=== PATIENT | female | born 2000 | race Two or more races ===

== ENCOUNTER 2025-01-04 16:21 | Observation (INO) | payer BC, OTHER ==
[~2025-01-04] VITALS: Ht 165.1 cm; Wt 72.6 kg
[2025-01-04] MEDS ORDERED: LACTATED RINGER'S 1,000 ML IV ONE (17:45)
[2025-01-04] MEDS: NIFEdipine 10 MG CAP PO ONE (17:47)
[2025-01-04] MEDS: LACTATED RINGER'S 1,000 ML IV ONE (17:47)
--- NOTE | 2025-01-04 18:10 | DVH ---
BIOPHYSICAL PROFILE HISTORY: GDMA1 Comparison Study: None TECHNIQUE: Multiple real-time grayscale sonographic images through the gravid uterus of the fetus wi th duplex Doppler color flow and M-mode spectral analysis FINDINGS: BIOPHYSICAL PROFILE: breathing score: 2 movement score: 2 tone score: 2 Quantitative SYD score: 2 (23.5 cm) Total score: 8/8, normal The cervix measuring 3.2 cm and is closed Single live fetus in cephalic presentation. heart rate 142 beats per minute. Anterior placenta without previa or abruption IMPRESSION: 1. Biophysical profile score: 8-8, normal.
[2025-01-04] MEDS: TERBUTALINE SULFATE 1 MG/ML 1ML VIAL SC SCH (18:24)
[2025-01-04] MEDS ORDERED: NIFE10CA52 PO (18:43)
--- NOTE | 2025-01-04 18:45 | DVHDS2 ---
Physician Discharge Progress N Final Diagnosis: testing for GDM, A1 PTL Operations or Procedures: Operations or Procedures 24yo IUP@35.1wks, +FM, denies feeling UCs. denies LOF/VB/ART/vision changes/RUQ pain. VSS NST reactive TOCO: initially q2-3 min, treated with 1L LR IV bolus/procardia 10mg PO/terbu nawaf SQ x1 then no UCs noted FKC/PTL/preE precautions reviewed Dr. Sandoval consulted, agrees with POC. Rx sent for procardia 10mg PO q4hrs. Other Interventions Other Interventions [place] [address] Ph: [phone] DIAGNOSTIC IMAGING Diagnostic Imaging Report : [id number] Signed PATIENT: ELKE CULP ACCT: [id number] UNIT: [id number] : 2000 LOC: [facility] ROOM / BED: [facility] / A AGE / SEX: 24 / F ADM STATUS: ADM IN SERVICE 1634 ORDERING PHYSICIAN: ADOLPH SIMMONS CNM PROCEDURE(s): BPP - BIOPHYSICAL PROFILE REASON: GDMA1 ORDER NUMBER(s): [id number], ACCESSION NUMBER(s): [id number] BIOPHYSICAL PROFILE HISTORY: GDMA1 Comparison Study: None TECHNIQUE: Multiple real-time grayscale sonographic images through the gravid uterus of the fetus with duplex Doppler color flow and M-mode spectral analysis FINDINGS: BIOPHYSICAL PROFILE: breathing score: 2 movement score: 2 tone score: 2 Quantitative SYD score: 2 (23.5 cm) Total score: 8/8, normal The cervix measuring 3.2 cm and is closed Single live fetus in cephalic presentation. heart rate 142 beats per minute. Anterior placenta without previa or abruption IMPRESSION: 1. Biophysical profile score: 8-8, normal. ATED BY: GREGORIA GLORIA MD DICTATED DATE/TIME: 01/04/251807 SIGNED BY: GREGORIA GLORIA MD Condition on Discharge: Stable Disposition: Home Discharge Instructions: Diet: Consistent carbohydrate Activity: See Comment Activity comment: pelvic rest Medications: see med list Follow Up Care: Specialist: f/u in 1wk Discharge Statement: "Patient was advised to return to the ER or call 911 if any headaches, dizziness, shortness of breath, chest pain, abdominal pain, bleeding, fevers, or worsening of medical condition. Patient was counseled about treatment plan, medications, possible side effects, patientverbalized understanding. All questions were answered to the best of my ability. This discharge took greater then 30 minutes in planning, reviewing documentation, counseling the patient, and discussing with other team members." Visit Coding OBGYN Date of Service: Jan 04, 2025 Billing Provider: ADOLPH SIMMONS CNM OPERATIONS MANAGER/COORDINATOR Common Visit Codes: 35207-[id number] OBS CARE (HIGH) OPERATIONS MANAGER/COORDINATOR Procedure Codes: 07784-92- NON-STRESS TEST ADOLPH SIMMONS CNM Jan 04, 2025 18:45
== END 2025-01-04 19:23 | disposition home or self-care (01) ==
LOC: UNDOADMOB 16:21 → LDRP 16:21 → UNDODISOB 19:23
PROVIDERS: ADMIT Obstetrics & Gynecology; ATTEND Obstetrics & Gynecology
DX: O24.419 Gestational diabetes mellitus in pregnancy, unspecified control (principal); O60.03 Preterm labor without delivery, third trimester; Z3A.35 35 weeks gestation of pregnancy; Z98.890 Other specified postprocedural states; Z79.899 Other long term (current) drug therapy
CPT/HCPCS: 76818; 81002; 82948; 82962; 94760; 96360; 96372; G0378; J3105; 59025; 76819

== ENCOUNTER 2025-01-13 17:30 | Observation (INO) | payer BC ==
[~2025-01-13] VITALS: Ht 165.1 cm; Wt 74.8 kg
[~2025-01-13 17:30] MED LIST: NIFE10CA52 PO
--- NOTE | 2025-01-13 18:27 | DVH ---
BIOPHYSICAL PROFILE HISTORY: GDMA1 TECHNIQUE: Multiple real-time grayscale sonographic images through the gravid uterus of the fetus wi th duplex Doppler color flow. FINDINGS: BIOPHYSICAL PROFILE: breathing score: 2 movement score: 2 tone score: 2 Quantitative SYD score: 2 Total score: 8 out of 8 Single live intrauterine . Cephalic lie. heart rate 144 beats per minute. SYD 19 cm. Debris within the amniotic fluid. Placenta anteriorly positioned. IMPRESSION: Biophysical profile score: 8 out of 8 Debris/ echogenic foci within the amniotic fluid.
[2025-01-13] MEDS ORDERED: PREN1TAB71 PO (19:11)
[2025-01-13] MEDS ORDERED: FERR1TAB36 PO (19:12)
--- NOTE | 2025-01-13 20:38 | DVHDS2 ---
Physician Discharge Progress N Final Diagnosis: testing for GDM Operations or Procedures: Operations or Procedures SUBJECTIVE Lyubov Kelly is a 24 yo with IUP at 36w3d presenting for routine weekly NST/BPP LMP: 05/03/2024 Review of Systems: Neuro: No complaints Heart: No complaints Lungs: No complaints GI: No complaints : No complaints Skin: No complaints Extremities: No complaints OBJECTIVE VSS FHR: Baseline: 120 Variability: Moderate Accelerations: Present Decelerations: Absent Category: 1 UCs: occasional ASSESSMENT 24 yo with IUP 36w3d GDM Reactive Category 1 Tracing BPP 12/31 PLAN -RN discussed labor precautions and kick counts. -Follow-up next week for NST as previously scheduled Other Interventions Other Interventions BIOPHYSICAL PROFILE HISTORY: GDMA1 TECHNIQUE: Multiple real-time grayscale sonographic images through the gravid uterus of the fetus with duplex Doppler color flow. FINDINGS: BIOPHYSICAL PROFILE: breathing score: 2 movement score: 2 tone score: 2 Quantitative SYD score: 2 Total score: 8 out of 8 Single live intrauterine . Cephalic lie. heart rate 144 beats per minute. SYD 19 cm. Debris within the amniotic fluid. Placenta anteriorly positioned. IMPRESSION: Biophysical profile score: 8 out of 8 Debris/ echogenic foci within the amniotic fluid. Condition on Discharge: Good Disposition: Home Discharge Instructions: Diet: Consistent carbohydrate Activity: No Restrictions, As Tolerated Medications: See med list Follow Up Care: Specialist: Follow-up in 1 week for NST/BPP Discharge Statement: "Patient was advised to return to the ER or call 911 if any headaches, dizziness, shortness of breath, chest pain, abdominal pain, bleeding, fevers, or worsening of medical condition. Patient was counseled about treatment plan, medications, possible side effects, patientverbalized understanding. All questions were answered to the best of my ability. This discharge took greater then 30 minutes in planning, reviewing documentation, counseling the patient, and discussing with other team members." Visit Coding OBGYN Date of Service: Jan 13, 2025 Billing Provider: SU HERNANDEZ CNM SENIOR INTERNET SALES CONSULTANT Common Visit Codes: 71570-DIYCDBT INP/OBS CARE (HIGH) SENIOR INTERNET SALES CONSULTANT Procedure Codes: 86115-64- NON-STRESS TEST SU HERNANDEZ [facility] Jan 13, 2025 20:37
== END 2025-01-13 19:43 | disposition home or self-care (01) ==
LOC: LDRP 17:30
PROVIDERS: ADMIT Obstetrics & Gynecology; ATTEND Obstetrics & Gynecology
DX: O24.419 Gestational diabetes mellitus in pregnancy, unspecified control (principal); Z3A.36 36 weeks gestation of pregnancy; Z98.890 Other specified postprocedural states; Z79.899 Other long term (current) drug therapy
CPT/HCPCS: 76818; 81002; 82962; 94760; G0378; 59025; 76819

== ENCOUNTER 2025-01-18 16:09 | Observation (INO) | payer BC ==
[~2025-01-18] VITALS: Ht 165.1 cm; Wt 75.7 kg
[~2025-01-18 16:09] MED LIST changes: +FERR1TAB36 PO; +PREN1TAB71 PO
--- NOTE | 2025-01-18 17:23 | DVH ---
BIOPHYSICAL PROFILE HISTORY: PIH Comparison Study: US BIOPHYSICAL PROFILE on DOS: 01/13/25, US BIOPHYSICAL PROFILE on DOS: 01/04/25 TECHNIQUE: Multiple real-time grayscale sonographic images through the gravid uterus of the fetus wit h duplex Doppler color flow and M-mode spectral analysis FINDINGS: BIOPHYSICAL PROFILE: breathing score: 2 movement score: 2 tone score: 2 Quantitative SYD score: 2 (SYD: 15.2 Cm.) Total score: 8 The cervix is not visualized Single live fetus in cephalic presentation. heart rate 148 beats per minute. Anterior placenta without previa or abruption Single live fetus at 37 weeks and 0 days Biophysical profile score 8/8 corresponding to an MERE of 02/08/2025 Estimated weight 3072 g IMPRESSION: Biophysical profile score: 8
[2025-01-18 18:19] LABS: Hematocrit 32.7 % (36.0-46.0); Hemoglobin 11.1 g/dL (12.2-16.2); Mean Corpuscular Hemoglobin 28.0 pg (28.0-32.0); Mean Corpuscular Volume 82.6 fL (80.0-100.0); Nucleated Red Blood Cells % 0.2 %
[2025-01-18 18:25] LABS: Alanine Aminotransferase 10 U/L (7-40); Albumin 3.7 g/dL (3.2-4.8); Anion Gap 10 (5-15); BUN/Creatinine Ratio 17.5 (10.0-20.0); Blood Urea Nitrogen 11 mg/dL (9-23); Calcium 8.8 mg/dL (8.7-10.4); Carbon Dioxide 23 mmol/L (20-31); Chloride 106 mmol/L (98-107); Glucose 85 mg/dL (74-106); Sodium 139 mmol/L (136-145); Total Protein 6.3 g/dL (5.7-8.2); Uric Acid 3.9 mg/dL (3.1-7.8)
[2025-01-18 18:30] LABS: Alkaline Phosphatase 165 U/L (46-116); Bilirubin, Total 0.3 mg/dL (0.2-1.0); Potassium 3.4 mmol/L (3.5-5.1)
[2025-01-18 18:32] LABS: Urine Budding Yeast FEW /hpf (None Seen); Urine Protein, UAD Negative (Negative)
[2025-01-18 18:35] LABS: INR 0.88 (0.9-1.15); Partial Thromboplastin Time 27.3 SEC (24.5-34.5); Prothrombin Time 9.4 sec (9.3-11.8)
[2025-01-18 18:38] LABS: Protein, Urine < 6.0 mg/dL (1-14)
--- NOTE | 2025-01-18 19:32 | DVHDS2 ---
Physician Discharge Progress N Final Diagnosis: testing for GDMA1 Ruled out Preeclampsia Operations or Procedures: Operations or Procedures S 24y/o patient IUP at 37.1 weeks sent down from [facility] OB office for elevated blood pressure 140/94 +FM, + BH, Denies RUQ pain, LOF, VB, UC's ART, Vision changes PNC at [facility] OB complicated by GDMA1 O VSS, normotensive, see CPN NST reactive Urine PC ratio incalculable [place] [address] Ph: [phone] DIAGNOSTIC IMAGING Diagnostic Imaging Report : [id number] Signed PATIENT: ELKE CULP ACCT: [id number] UNIT: [id number] : 2000 LOC: [facility] ROOM / BED: [facility] / A AGE / SEX: 24 / F ADM STATUS: ADM IN SERVICE 1622 ORDERING PHYSICIAN: ADOLPH SIMMONS CNM PROCEDURE(s): BPP - BIOPHYSICAL PROFILE REASON: [facility] ORDER NUMBER(s): [id number], ACCESSION NUMBER(s): [id number] BIOPHYSICAL PROFILE HISTORY: [facility] Comparison Study: US BIOPHYSICAL PROFILE on DOS: 01/13/25, US BIOPHYSICAL PROFILE on DOS: 01/04/25 TECHNIQUE: Multiple real-time grayscale sonographic images through the gravid uterus of the fetus with duplex Doppler color flow and M-mode spectral analysis FINDINGS: BIOPHYSICAL PROFILE: breathing score: 2 movement score: 2 tone score: 2 Quantitative SYD score: 2 (SYD: 15.2 Cm.) Total score: 8 The cervix is not visualized Single live fetus in cephalic presentation. heart rate 148 beats per minute. Anterior placenta without previa or abruption Single live fetus at 37 weeks and 0 days Biophysical profile score 8/8 corresponding to an MERE of 02/08/2025 Estimated weight 3072 g IMPRESSION: Biophysical profile score: 8 ATED BY: JUAN ROSS MD DICTATED DATE/TIME: 01/18/25 1720 SIGNED BY: JUAN ROSS MD SIGNED DATE/TIME: 01/18/25 172 CC: Laboratory Tests Test 01/18/25 17:15 01/18/25 17:37 01/18/25 17:51 Range/Units Urine Color Colorless Yellow Urine Clarity Turbid H Clear Urine pH 6.5 5.0-9.0 Urine Specific [place] 1.006 1.001-1.035 Urine Protein Negative Negative Urine Ketones Negative Negative Urine Blood Negative Negative /uL Urine Nitrite Negative Negative Urine Bilirubin Negative Negative Urine Urobilinogen Normal Negative mg/dL Urine Leukocyte Esterase Trace Negative /uL Urine RBC 2 0 - 4 /hpf Urine Microscopic WBC 14 H 0-5 /HPF Urine Squamous Epithelial Cells Few <5 /hpf Urine Bacteria Many H None Seen /hpf Urine Yeast (Budding) Few None Seen /hpf Urine Creatinine 24.81 L 30.0-125.0 mg/dL -U-r-i-n-e- -Y-t-v-t-e-i-n-/-L-z-e-p-s-o-n-i-n-e- -R-a-t-i-o- -0-.-2-4- - - Urine Glucose Normal Normal mg/dL Urine Total Protein < 6.0 1-14 mg/dL POC Glucose 89 70-106 mg/dl White Blood Count 9.5 4.4-10.8 10^3/uL Red Blood Count 3.95 L 4.0-5.20 10^6/uL Hemoglobin 11.1 L 12.2-16.2 g/dL Hematocrit 32.7 L 36.0-46.0 % Mean Corpuscular Volume 82.6 80.0-100.0 fL Mean Corpuscular Hemoglobin 28.0 28.0-32.0 pg Mean Corpuscular Hemoglobin Concent 33.9 32.0-36.0 g/dL Red Cell Distribution Width 14.7 H 11.8-14.3 % Platelet Count 261 140-450 10^3/uL Mean Platelet Volume 9.6 6.9-10.8 fL Neutrophils (%) (Auto) 69.7 37.0-80.0 % Lymphocytes (%) (Auto) 23.0 10.0-50.0 % Monocytes (%) (Auto) 6.5 0.0-12.0 % Eosinophils (%) (Auto) 0.6 0.0-7.0 % Basophils (%) (Auto) 0.2 0.0-2.0 % Neutrophils # (Auto) 6.6 1.6-8.6 10 ^3/uL Lymphocytes # (Auto) 2.2 0.4-5.4 10 ^3/uL Monocytes # (Auto) 0.6 0-1.3 10 ^3/uL Eosinophils # (Auto) 0.1 0-0.8 10 ^3/uL Basophils # (Auto) 0 0-0.2 10 ^3/uL Nucleated Red Blood Cells 0.2 % Prothrombin Time 9.4 9.3-11.8 sec Prothrombin Time INR 0.88 L 0.9-1.15 Activated Partial Thromboplast Time 27.3 24.5-34.5 SEC Sodium Level 139 136-145 mmol/L Potassium Level 3.4 L 3.5-5.1 mmol/L Chloride Level 106 98-107 mmol/L Carbon Dioxide Level 23 20-31 mmol/L Anion Gap 10 5-15 Blood Urea Nitrogen 11 9-23 mg/dL Creatinine 0.63 0.550-1.02 mg/dL Glomerular Filtration Rate Calc 126 >90 mL/min BUN/Creatinine Ratio 17.5 10.0-20.0 Serum Glucose 85 74-106 mg/dL Uric Acid 3.9 3.1-7.8 mg/dL Calcium Level 8.8 8.7-10.4 mg/dL Total Bilirubin 0.3 0.2-1.0 mg/dL Aspartate Amino Transferase (AST) 16 13-40 U/L Alanine Aminotransferase (ALT) 10 7-40 U/L Alkaline Phosphatase 165 H 46-116 U/L Total Protein 6.3 5.7-8.2 g/dL Albumin 3.7 3.2-4.8 g/dL A 24y/o patient IUP at 37.1 weeks GDMA1 Ruled out PreE P Discharge home [facility]KC, PreE/labor precautions endorsed Follow up in one week Condition on Discharge: Stable Disposition: Home Discharge Instructions: Diet: Consistent carbohydrate Activity: No Restrictions, As Tolerated Medications: See med list Follow Up Care: Specialist: Follow up in one week Discharge Statement: "Patient was advised to return to the ER or call 911 if any headaches, dizziness, shortness of breath, chest pain, abdominal pain, bleeding, fevers, or worsening of medical condition. Patient was counseled about treatment plan, medications, possible side effects, patientverbalized understanding. All questions were answered to the best of my ability. This discharge took greater then 30 minutes in planning, reviewing documentation, counseling the patient, and discussing with other team members." Visit Coding OBGYN Date of Service: Jan 18, 2025 Billing Provider: ADOLPH SIMMONS CNM GUM SCORING MACHINE OPERATOR Common Visit Codes: 28936-HOMBRYE OBS CARE (HIGH) GUM SCORING MACHINE OPERATOR Procedure Codes: 45140-72- NON-STRESS TEST ADOLPH SIMMONS CNM Jan 18, 2025 19:32
== END 2025-01-18 19:07 | disposition home or self-care (01) ==
LOC: LDRP 16:09 → UNDOADMOB 16:09 → LDRP 16:24 → UNDODISOB 19:07
PROVIDERS: ADMIT Obstetrics & Gynecology; ATTEND Obstetrics & Gynecology
DX: O24.419 Gestational diabetes mellitus in pregnancy, unspecified control (principal); Z3A.37 37 weeks gestation of pregnancy; Z98.890 Other specified postprocedural states; Z86.2 Personal history of diseases of the blood and blood-forming organs and certain disorders involving the immune mechanism
CPT/HCPCS: 36415; 76805; 76818; 80053; 81001; 82570; 82962; 84156; 84550; 85025; 85610; 85730; 94760; G0378; 59025; 76819

== ENCOUNTER 2025-01-25 07:19 | Observation (INO) | payer BC ==
--- NOTE | 2025-01-25 17:42 | DVH ---
BIOPHYSICAL PROFILE HISTORY: gdma1 TECHNIQUE: Multiple transabdominal real-time grayscale sonographic images through the gravid uterus of the fetus with duplex Doppler color flow and M-mode spectral analysis FINDINGS: BIOPHYSICAL PROFILE: breathing score: 2 movement score: 2 tone score: 2 Quantitative SYD score: 2 (SYD: 21.1 Cm.) Total score: 8 The cervix is not well-visualized Single live fetus in cephalic presentation. heart rate 134 beats per minute. Anterior placenta without previa or abruption IMPRESSION: Biophysical profile score: 8
--- NOTE | 2025-01-25 17:56 | DVHDS2 ---
Physician Discharge Progress N Final Diagnosis: testing for GDM, A1 Operations or Procedures: Operations or Procedures 24yo IUP@38.1wks VSS NST reactive FKC/Labor precautions reviewed IOL scheduled for 02/03/[address] Sandoval consulted, agrees with POC. Other Interventions Other Interventions [address] [address] Ph: [phone] DIAGNOSTIC IMAGING Diagnostic Imaging Report : [id number] Signed PATIENT: ELKE CULP ACCT: [id number] UNIT: [id number] : 2000 LOC: [facility] ROOM / BED: [facility] / A AGE / SEX: 24 / F ADM STATUS: ADM IN SERVICE 164 ORDERING PHYSICIAN: ADOLPH SIMMONS CNM PROCEDURE(s): BPP - BIOPHYSICAL PROFILE REASON: gdma1 ORDER NUMBER(s): [id number], ACCESSION NUMBER(s): [id number] BIOPHYSICAL PROFILE HISTORY: gdma1 TECHNIQUE: Multiple transabdominal real-time grayscale sonographic images through the gravid uterus of the fetus with duplex Doppler color flow and M-mode spectral analysis FINDINGS: BIOPHYSICAL PROFILE: breathing score: 2 movement score: 2 tone score: 2 Quantitative SYD score: 2 (SYD: 21.1 Cm.) Total score: 8 The cervix is not well-visualized Single live fetus in cephalic presentation. heart rate 134 beats per minute. Anterior placenta without previa or abruption IMPRESSION: Biophysical profile score: 8 ATED BY: LUANA MONTAÑO DO DICTATED DATE/TIME: 01/25/251739 SIGNED BY: LUANA MONTAÑO DO SIGNED DATE/TIME: 01/25/251739 CC: Condition on Discharge: Stable Disposition: Home Discharge Instructions: Diet: Consistent carbohydrate Activity: No Restrictions, As Tolerated Medications: see med list Follow Up Care: Specialist: f/u in 1wk for NST/BPP Discharge Statement: "Patient was advised to return to the ER or call 911 if any headaches, dizziness, shortness of breath, chest pain, abdominal pain, bleeding, fevers, or worsening of medical condition. Patient was counseled about treatment plan, medications, possible side effects, patientverbalized understanding. All questions were answered to the best of my ability. This discharge took greater then 30 minutes in planning, reviewing documentation, counseling the patient, and discussing with other team members." Visit Coding OBGYN Date of Service: Jan 25, 2025 Billing Provider: ADOLPH SIMMONS CNM CRYSTAL GRINDER Common Visit Codes: 80646-[id number] OBS CARE (HIGH) CRYSTAL GRINDER Procedure Codes: 22084-67- NON-STRESS TEST ADOLPH SIMMONS CNM Jan 25, 2025 17:56
== END 2025-01-25 17:44 | disposition home or self-care (01) ==
LOC: LDRP 16:32
PROVIDERS: ADMIT Obstetrics & Gynecology; ATTEND Obstetrics & Gynecology
DX: O24.419 Gestational diabetes mellitus in pregnancy, unspecified control (principal); Z3A.38 38 weeks gestation of pregnancy; Z98.890 Other specified postprocedural states
CPT/HCPCS: 59025; 76819; 82948; 82962; 94760; G0378; 76818

== ENCOUNTER 2025-02-01 14:35 | Observation (INO) | payer BC ==
--- NOTE | 2025-02-01 15:23 | DVH ---
OB ULTRASOUND, LIMITED CLINICAL INDICATION: GDMA1 TECHNIQUE: Multiple grayscale ultrasound and M-mode images were obtained of the pelvis for evaluation of intrauterine . COMPARISON: US BIOPHYSICAL PROFILE on DOS: 01/25/25, US OB ULTRASOUND COMP GTR 14 WKS on DOS: 01/18/25, US BIOPHYSICAL PROFILE on DOS: 01/18/25 FINDINGS: A single living fetus is seen in cephalic presentation. Biophysical profile: 12/31 breathin movements: 2 tone: 2 Amniotic fluid volume: 2 Placenta: Anterior. Amniotic fluid: Visibly normal. SYD 21.4 cm heart rate: 132 beats/min. A complete anatomic survey was not performed on this exam. IMPRESSION: 1. Biophysical profile: 12/31
--- NOTE | 2025-02-02 23:16 | DVHDS2 ---
Physician Discharge Progress N Final Diagnosis: gdm 38wks Operations or Procedures: Operations or Procedures nst reactive reviwed,sono Condition on Discharge: Good Disposition: Home Discharge Instructions: Diet: Consistent carbohydrate Activity: No Restrictions, As Tolerated Medications: na Follow Up Care: Specialist: 3d Discharge Statement: "Patient was advised to return to the ER or call 911 if any headaches, dizziness, shortness of breath, chest pain, abdominal pain, bleeding, fevers, or worsening of medical condition. Patient was counseled about treatment plan, medications, possible side effects, patientverbalized understanding. All questions were answered to the best of my ability. This discharge took greater then 30 minutes in planning, reviewing documentation, counseling the patient, and discussing with other team members." Visit Coding OBGYN Date of Service: Feb 01, 2025 Billing Provider: MARVIN HANKS DO TREAD BOOKER Common Visit Codes: [id number] INP/OBS CARE (HIGH) TREAD BOOKER Procedure Codes: 62268-69- NON-STRESS TEST MARVIN HANKS DO Feb 02, 2025 23:16
== END 2025-02-01 16:10 | disposition home or self-care (01) ==
LOC: LDRP 14:35 → UNDOADMOB 14:35 → LDRP 14:42
PROVIDERS: ADMIT Obstetrics & Gynecology; ATTEND Obstetrics & Gynecology
DX: O24.419 Gestational diabetes mellitus in pregnancy, unspecified control (principal); Z3A.38 38 weeks gestation of pregnancy; Z98.890 Other specified postprocedural states
CPT/HCPCS: 76818; 81002; 82948; 82962; 94760; G0378; 59025; 76819

== ENCOUNTER 2025-02-03 08:22 | Inpatient (IN) | payer BC ==
[~2025-02-03] VITALS: Ht 165.1 cm; Wt 73.5 kg
[2025-02-03] MEDS ORDERED: LIDOCAINE 2%HCL (LOCAL ANESTH.) INJ 20ML MDV IJ PRN (14:15)
[2025-02-03] MEDS ORDERED: LACT. RINGERS/OXYTOCIN 20UNITS 500 ML IV ONE ×2 (14:15→14:45)
[2025-02-03] MEDS: WITCH HAZEL-GLYCERIN PAD TOP PRN (15:44)
[2025-02-03] MEDS: PHISODERM TOP SOLN 240ML BTL TOP PRN (15:44)
[2025-02-03] MEDS: DERMOPLAST 60ML BOTTLE TOP PRN (15:44)
--- NOTE | 2025-02-03 15:44 | DVHHP ---
ADMIT DATE: 02/03/2025 CHIEF COMPLAINT: Desires induction of labor. HISTORY OF PRESENT ILLNESS: The patient is a 24-year-old 1, para 0 with EDC 02/07/2025, estimated gestational age of 39+ weeks, admitted for induction of labor secondary to diabetes, GDMA1. Denies having any vaginal bleeding or rupture of membranes. PAST MEDICAL HISTORY: None. PAST SURGICAL HISTORY: None. SOCIAL HISTORY: None. FAMILY HISTORY: None. OBSTETRIC AND GYNECOLOGIC HISTORY: Primigravid. ALLERGIES: No known drug allergies. REVIEW OF SYSTEMS: Consistent with HPI. PHYSICAL EXAMINATION: VITAL SIGNS: Stable, afebrile. HEENT: Within normal limits. CARDIOVASCULAR: Regular rate and rhythm. LUNGS: Clear to auscultation. BREASTS: No nodes or masses. ABDOMEN: Gravid. Positive heart. PELVIC: 1 cm, 30%, -3. EXTREMITIES: No clubbing, cyanosis, or edema. IMPRESSION: Intrauterine at 39 weeks, induction of labor for GDM. PLAN: Induction of labor with Cytotec. Informed consent was obtained. Risks and complications of induction were discussed with the patient. Options reviewed. All questions answered. The patient fully understands. She wishes to proceed with induction. DO FRANSICO Cantrell TID: [id number] RECEIPT: [id number]
--- NOTE | 2025-02-03 15:57 | DVHPN2 ---
Chief Complaints Patient reports: No new complaints Nursing reports: No new complaints Objective Medications Current Medications Medications (Trade) Dose Ordered Sig/Nelly Route PRN Reason Start Time Stop Time Status Last Admin Benzocaine (Dermoplast) 1 applic PRN PRN TOP PERINEAL AREA DISCOMFORT 02/03/25 14:15 02/03/25 15:44 Lactated Ringer's 1,000 ml @ 125 mls/hr Q8H IV 02/03/25 14:15 Lidocaine HCl (Xylocaine) 20 ml ONCE PRN IJ PERINEAL AREA DISCOMFORT 02/03/25 14:15 Misoprostol (Cytotec) 50 mcg Q4HPRN PRN PO CERVICAL RIPENING 02/03/25 15:15 02/03/25 15:44 Sodium Lauryl Sulfate (Phisoderm) 240 ml PRN PRN TOP PERINEAL AREA DISCOMFORT 02/03/25 14:15 02/03/25 15:44 Witch Julia (Tucks) 1 pad PRN PRN TOP PERINEAL AREA DISCOMFORT 02/03/25 14:15 02/03/25 15:44 Others VE -1CM/30/-3 Ass/Plan Assessment IOL FOR GDM Plan REC ONE CYTOTEC Visit Coding OBGYN Date of Service: Feb 03, 2025 Billing Provider: MARVIN HANKS DO C PROGRAMMER Common Visit Codes: [id number] INP/OBS CARE(HIGH) C PROGRAMMER Procedure Codes: 20267-32- NON-STRESS TEST MARVIN HANKS DO Feb 03, 2025 15:57
[2025-02-03 16:17] LABS: Hematocrit 36.0 % (36.0-46.0); Hemoglobin 12.2 g/dL (12.2-16.2); Mean Corpuscular Hemoglobin 28.0 pg (28.0-32.0); Mean Corpuscular Volume 82.8 fL (80.0-100.0); Nucleated Red Blood Cells % 0.1 %
[2025-02-03 16:29] LABS: Alanine Aminotransferase 10 U/L (7-40); Albumin 4.1 g/dL (3.2-4.8); Anion Gap 11 (5-15); BUN/Creatinine Ratio 12.2 (10.0-20.0); Bilirubin, Total 0.4 mg/dL (0.2-1.0); Blood Urea Nitrogen 10 mg/dL (9-23); Calcium 9.3 mg/dL (8.7-10.4); Carbon Dioxide 22 mmol/L (20-31); Chloride 104 mmol/L (98-107); Glucose 76 mg/dL (74-106); Potassium 3.8 mmol/L (3.5-5.1); Sodium 137 mmol/L (136-145); Total Protein 7.2 g/dL (5.7-8.2)
[2025-02-03 16:30] LABS: Alkaline Phosphatase 208 U/L (46-116)
[2025-02-03 16:31] LABS: Urine Protein, UAD Negative (Negative)
[2025-02-03 16:31] LABS: INR 0.88 (0.9-1.15); Partial Thromboplastin Time 29.3 SEC (24.5-34.5); Prothrombin Time 9.4 sec (9.3-11.8)
[2025-02-03 17:08] LABS: Amphetamine Screen, Urine Neg (NEGATIVE); Barbiturate Scree,Urine Neg (NEGATIVE); Benzodiazephine Screen, Urine Neg (NEGATIVE); Cannabinoid Screen, Urine Neg (NEGATIVE); Cocaine Screen, Urine Neg (NEGATIVE); Opiate Scree,Urine Neg (NEGATIVE); Phencyclidine Screen, Urine Neg (NEGATIVE)
[2025-02-03] MEDS ORDERED: DINOPROSTONE 10MG VAG SUPP PV ONE ×2 (21:00→21:30)
[2025-02-03] MEDS: DINOPROSTONE 10MG VAG SUPP PV ONE (21:30)
--- NOTE | 2025-02-03 22:15 | DVHPN2 ---
CNM Labor Progress Note Date and Time Seen Date Seen: Feb 03, 2025 Time Seen: 19:50 Subjective Patient reports: Feels better Subjective Comment Patient feels good now that she has been walking around and was able to eat dinner. Not feeling any contractions yet and is excited about the induction process. Objective Vital Signs VSS stable. See CPN Monitoring Method Monitoring Method: External Heart Rate Heart Rate Baseline: 120 Heart Rate Variability: Moderate Presence of FHR Accelerations: Yes Presence of FHR Decelerations: No Comment on Trends or Patterns: cat 1 Are all 5 Components of the FH: Yes Contractions Contractions Frequency: Other (every 1-3 minutes) Contractions Intensity: Mild Contractions Resting Tone: Relaxed Membranes Membranes: Intact Vaginal Exam Vag Exam Deferred: Yes Medications Medications - Pitocin: No Medication - Epidural: No Lab Results Lab Results Current Medications Medications (Trade) Dose Ordered Sig/Nelly Start Time Stop Time Status Last Admin Dose Admin Lactated Ringer's 1,000 ml @ 125 mls/hr Q8H 02/03/25 14:15 Melinda Dumont (Tucks) 1 pad PRN PRN 02/03/25 14:15 02/03/25 15:44 1 PAD Sodium Lauryl Sulfate (Phisoderm) 240 ml PRN PRN 02/03/25 14:15 02/03/25 15:44 240 ML Benzocaine (Dermoplast) 1 applic PRN PRN 02/03/25 14:15 02/03/25 15:44 1 APPLIC Lidocaine HCl (Xylocaine) 20 ml ONCE PRN 02/03/25 14:15 Oxytocin 500 ml @ 999 mls/hr Q31M ONCE 02/03/25 14:15 02/03/25 15:36 DC Oxytocin 500 ml @ 125 mls/hr Q4H ONCE 02/03/25 14:45 02/03/25 18:44 DC Misoprostol (Cytotec) 50 mcg Q4HPRN PRN 02/03/25 15:15 02/03/25 21:01 50 MCG Dinoprostone (Cervidil Suppository) 1 supp ONCE ONCE 02/03/25 21:00 02/03/25 21:15 DC Dinoprostone (Cervidil Suppository) 1 supp ONCE ONCE 02/03/25 21:30 02/03/25 21:31 DC Laboratory Tests Test 02/03/25 15:26 02/03/25 14:22 02/03/25 13:52 Range/Units POC Glucose 80 70-106 mg/dl White Blood Count 9.0 4.4-10.8 10^3/uL Red Blood Count 4.35 4.0-5.20 10^6/uL Hemoglobin 12.2 12.2-16.2 g/dL Hematocrit 36.0 36.0-46.0 % Mean Corpuscular Volume 82.8 80.0-100.0 fL Mean Corpuscular Hemoglobin 28.0 28.0-32.0 pg Mean Corpuscular Hemoglobin Concent 33.8 32.0-36.0 g/dL Red Cell Distribution Width 14.7 H 11.8-14.3 % Platelet Count 245 140-450 10^3/uL Mean Platelet Volume 9.3 6.9-10.8 fL Neutrophils (%) (Auto) 67.7 37.0-80.0 % Lymphocytes (%) (Auto) 25.2 10.0-50.0 % Monocytes (%) (Auto) 6.4 0.0-12.0 % Eosinophils (%) (Auto) 0.5 0.0-7.0 % Basophils (%) (Auto) 0.2 0.0-2.0 % Neutrophils # (Auto) 6.1 1.6-8.6 10 ^3/uL Lymphocytes # (Auto) 2.3 0.4-5.4 10 ^3/uL Monocytes # (Auto) 0.6 0-1.3 10 ^3/uL Eosinophils # (Auto) 0 0-0.8 10 ^3/uL Basophils # (Auto) 0 0-0.2 10 ^3/uL Nucleated Red Blood Cells 0.1 % Prothrombin Time 9.4 9.3-11.8 sec Prothrombin Time INR 0.88 L 0.9-1.15 Activated Partial Thromboplast Time 29.3 24.5-34.5 SEC Sodium Level 137 136-145 mmol/L Potassium Level 3.8 3.5-5.1 mmol/L Chloride Level 104 98-107 mmol/L Carbon Dioxide Level 22 20-31 mmol/L Anion Gap 11 5-15 Blood Urea Nitrogen 10 9-23 mg/dL Creatinine 0.82 0.550-1.02 mg/dL Glomerular Filtration Rate Calc 102 >90 mL/min BUN/Creatinine Ratio 12.2 10.0-20.0 Serum Glucose 76 74-106 mg/dL Calcium Level 9.3 8.7-10.4 mg/dL Total Bilirubin 0.4 0.2-1.0 mg/dL Aspartate Amino Transferase (AST) 21 13-40 U/L Alanine Aminotransferase (ALT) 10 7-40 U/L Alkaline Phosphatase 208 H 46-116 U/L Total Protein 7.2 5.7-8.2 g/dL Albumin 4.1 3.2-4.8 g/dL Treponema pallidum Antibody Non-reactive Negative Hepatitis C Antibody Negative Negative Urine Color Colorless Yellow Urine Clarity Turbid H Clear Urine pH 6.5 5.0-9.0 Urine Specific [place] 1.010 1.001-1.035 Urine Protein Negative Negative Urine Ketones 1+ H Negative Urine Blood Negative Negative /uL Urine Nitrite Negative Negative Urine Bilirubin Negative Negative Urine Urobilinogen Normal Negative mg/dL Urine Leukocyte Esterase 2+ Negative /uL Urine RBC 1 0 - 4 /hpf Urine Microscopic WBC 11 H 0-5 /HPF Urine Squamous Epithelial Cells Few <5 /hpf Urine Bacteria Many H None Seen /hpf Urine Glucose Normal Normal mg/dL Urine Opiates Screen Neg NEGATIVE Urine Fentanyl Screen Neg NEGATIVE Urine Barbiturates Screen Neg NEGATIVE Urine Phencyclidine Screen Neg NEGATIVE Urine Amphetamines Screen Neg NEGATIVE Urine Benzodiazepines Screen Neg NEGATIVE Urine Cocaine Screen Neg NEGATIVE Urine Cannabinoids Screen Neg NEGATIVE Assessment Assessment 24 year old at 39w3d Category 1 tracing GDMA1 Induction, early labor GBS negative Plan Plan -Extensively discussed patient plan and options with induction of labor. Reviewed methods of cervical ripening, including cervidil, cytotec, CRB, and combination of CRB with cytotec. Patient states she does not want the cervical balloon at this time, but is amenable to either cytotec or cervidil. Discussed risks/benefits of both and patient verbalizes understanding -Vital signs per policy -Admit blood glucose WNL. OK to defer bedside blood glucose at this time. If patient becomes symptomatic or active labor begins, resume accuchecks per policy -Give 50mcg cytotec PO q 4 hours per protocol. If unable to give after 2 hours, CNM to place cervidil. OK to defer SVE until 4 hours after last cytotec dose if patient is not feeling contractions -Allow patient to ambulate and eat as desired while on cytotec and without epidural. OK for intermittent monitoring per policy if tracing is category 1 and reactive Plan discussed with: Patient, Spouse, Other (mother) Visit Coding OBGYN Date of Service: Feb 03, 2025 Billing Provider: SU HERNANDEZ CNM SPRING FORMER MACHINE Common Visit Codes: [id number] INP/OBS CARE(HIGH) SU HERNANDEZ CNM Feb 03, 2025 22:15
--- NOTE | 2025-02-04 07:20 | DVHPN2 ---
Chief Complaints Patient reports: No new complaints, Feels better Nursing reports: No new complaints Objective Medications Current Medications Medications (Trade) Dose Ordered Sig/Nelly Route PRN Reason Start Time Stop Time Status Last Admin Benzocaine (Dermoplast) 1 applic PRN PRN TOP PERINEAL AREA DISCOMFORT 02/03/25 14:15 02/03/25 15:44 Lactated Ringer's 1,000 ml @ 125 mls/hr Q8H IV 02/03/25 14:15 Lidocaine HCl (Xylocaine) 20 ml ONCE PRN IJ PERINEAL AREA DISCOMFORT 02/03/25 14:15 Misoprostol (Cytotec) 50 mcg Q4HPRN PRN PO CERVICAL RIPENING 02/03/25 15:15 02/03/25 21:01 Sodium Lauryl Sulfate (Phisoderm) 240 ml PRN PRN TOP PERINEAL AREA DISCOMFORT 02/03/25 14:15 02/03/25 15:44 Witch Julia (Tucks) 1 pad PRN PRN TOP PERINEAL AREA DISCOMFORT 02/03/25 14:15 02/03/25 15:44 Others ve-3cm/70/-2 Studies Laboratory Tests 02/03/25 14:22 Test 02/03/25 14:22 Range/Units Serum Glucose 76 74-106 mg/dL Ass/Plan Assessment IOL FOR GDM Plan start pitocin Visit Coding OBGYN Date of Service: Feb 04, 2025 Billing Provider: MARVIN HANKS DO COLORER MACHINE Common Visit Codes: [id number] INP/OBS CARE(HIGH) COLORER MACHINE Procedure Codes: [id number] NON-STRESS TEST MARVIN HANKS DO Feb 04, 2025 07:20
[2025-02-04] MEDS: LACT. RINGERS/OXYTOCIN 20UNITS 1,000 ML IV SCH (09:33)
[2025-02-04] MEDS: LACTATED RINGER'S 1,000 ML IV SCH (11:06)
--- NOTE | 2025-02-04 17:23 | DVHPN2 ---
Chief Complaints Patient reports: No new complaints, Feels better Nursing reports: No new complaints, No abdominal pain Objective Medications Current Medications Medications (Trade) Dose Ordered Sig/Nelly Route PRN Reason Start Time Stop Time Status Last Admin Oxytocin 1,000 ml @ 6 ml/hr Q24H IV 02/04/25 07:45 02/04/25 15:11 Others VE-UNCHANGED 3CM Studies Laboratory Tests 02/03/25 14:22 Test 02/03/25 14:22 Range/Units Serum Glucose 76 74-106 mg/dL Ass/Plan Assessment IOL FOR GDM Plan PT WAS GIVEN A PITOCIN BREAK ,OFFEREDTO DC HOME BUT PT DOESNT WANT IT PITOCIN WAS RESTARTED Visit Coding OBGYN Date of Service: Feb 04, 2025 Billing Provider: MARVIN HANKS DO PAYROLL REPRESENTATIVE Common Visit Codes: [id number] INP/OBS CARE (HIGH) PAYROLL REPRESENTATIVE Procedure Codes: 65272-58- NON-STRESS TEST MARVIN HANKS DO Feb 04, 2025 17:23
--- NOTE | 2025-02-04 19:44 | DVHPN2 ---
CNM Labor Progress Note Date and Time Seen Date Seen: Feb 04, 2025 Time Seen: 19:15 Subjective Patient reports: No new complaints Subjective Comment Patient positioned R flying cowgirl with peanut ball upon entry to room. Cemetery Keeper (aunt), mother, and partner at bedside. Patient states that she is thankful for the kindness of the staff and expresses positive feelings about the induction pr ocess. Objective Vital Signs VSS stable. See CPN Monitoring Method Monitoring Method: External Heart Rate Heart Rate Baseline: 120 Heart Rate Variability: Moderate Presence of FHR Accelerations: Yes Presence of FHR Decelerations: No Comment on Trends or Patterns: cat 1 Contractions Contractions Frequency: Other (every 2 minutes) Contractions Intensity: Mild Contractions Resting Tone: Relaxed Membranes Membranes: Intact Vaginal Exam Vag Exam Deferred: Yes Medications Medications - Pitocin: Yes Medication - Epidural: No Lab Results Lab Results Current Medications Medications (Trade) Dose Ordered Sig/Nelly Start Time Stop Time Status Last Admin Dose Admin Lactated Ringer's 1,000 ml @ 125 mls/hr Q8H 02/03/25 14:15 02/04/25 11:07 125 MLS/HR Witch Julia (Tucks) 1 pad PRN PRN 02/03/25 14:15 02/03/25 15:44 1 PAD Sodium Lauryl Sulfate (Phisoderm) 240 ml PRN PRN 02/03/25 14:15 02/03/25 15:44 240 ML Benzocaine (Dermoplast) 1 applic PRN PRN 02/03/25 14:15 02/03/25 15:44 1 APPLIC Lidocaine HCl (Xylocaine) 20 ml ONCE PRN 02/03/25 14:15 Oxytocin 500 ml @ 999 mls/hr Q31M ONCE 02/03/25 14:15 02/03/25 15:36 DC Oxytocin 500 ml @ 125 mls/hr Q4H ONCE 02/03/25 14:45 02/03/25 18:44 DC Misoprostol (Cytotec) 50 mcg Q4HPRN PRN 02/03/25 15:15 02/03/25 21:01 50 MCG Dinoprostone (Cervidil Suppository) 1 supp ONCE ONCE 02/03/25 21:00 02/03/25 21:15 DC Dinoprostone (Cervidil Suppository) 1 supp ONCE ONCE 02/03/25 21:30 02/03/25 21:31 DC Oxytocin 1,000 ml @ 6 ml/hr Q24H 02/04/25 07:45 02/04/25 15:11 6 ML/HR Laboratory Tests Test 02/04/25 16:54 02/03/25 14:22 02/03/25 13:52 Range/Units POC Glucose 88 70-106 mg/dl White Blood Count 9.0 4.4-10.8 10^3/uL Red Blood Count 4.35 4.0-5.20 10^6/uL Hemoglobin 12.2 12.2-16.2 g/dL Hematocrit 36.0 36.0-46.0 % Mean Corpuscular Volume 82.8 80.0-100.0 fL Mean Corpuscular Hemoglobin 28.0 28.0-32.0 pg Mean Corpuscular Hemoglobin Concent 33.8 32.0-36.0 g/dL Red Cell Distribution Width 14.7 H 11.8-14.3 % Platelet Count 245 140-450 10^3/uL Mean Platelet Volume 9.3 6.9-10.8 fL Neutrophils (%) (Auto) 67.7 37.0-80.0 % Lymphocytes (%) (Auto) 25.2 10.0-50.0 % Monocytes (%) (Auto) 6.4 0.0-12.0 % Eosinophils (%) (Auto) 0.5 0.0-7.0 % Basophils (%) (Auto) 0.2 0.0-2.0 % Neutrophils # (Auto) 6.1 1.6-8.6 10 ^3/uL Lymphocytes # (Auto) 2.3 0.4-5.4 10 ^3/uL Monocytes # (Auto) 0.6 0-1.3 10 ^3/uL Eosinophils # (Auto) 0 0-0.8 10 ^3/uL Basophils # (Auto) 0 0-0.2 10 ^3/uL Nucleated Red Blood Cells 0.1 % Prothrombin Time 9.4 9.3-11.8 sec Prothrombin Time INR 0.88 L 0.9-1.15 Activated Partial Thromboplast Time 29.3 24.5-34.5 SEC Sodium Level 137 136-145 mmol/L Potassium Level 3.8 3.5-5.1 mmol/L Chloride Level 104 98-107 mmol/L Carbon Dioxide Level 22 20-31 mmol/L Anion Gap 11 5-15 Blood Urea Nitrogen 10 9-23 mg/dL Creatinine 0.82 0.550-1.02 mg/dL Glomerular Filtration Rate Calc 102 >90 mL/min BUN/Creatinine Ratio 12.2 10.0-20.0 Serum Glucose 76 74-106 mg/dL Calcium Level 9.3 8.7-10.4 mg/dL Total Bilirubin 0.4 0.2-1.0 mg/dL Aspartate Amino Transferase (AST) 21 13-40 U/L Alanine Aminotransferase (ALT) 10 7-40 U/L Alkaline Phosphatase 208 H 46-116 U/L Total Protein 7.2 5.7-8.2 g/dL Albumin 4.1 3.2-4.8 g/dL Treponema pallidum Antibody Non-reactive Negative Hepatitis C Antibody Negative Negative Urine Color Colorless Yellow Urine Clarity Turbid H Clear Urine pH 6.5 5.0-9.0 Urine Specific [place] 1.010 1.001-1.035 Urine Protein Negative Negative Urine Ketones 1+ H Negative Urine Blood Negative Negative /uL Urine Nitrite Negative Negative Urine Bilirubin Negative Negative Urine Urobilinogen Normal Negative mg/dL Urine Leukocyte Esterase 2+ Negative /uL Urine RBC 1 0 - 4 /hpf Urine Microscopic WBC 11 H 0-5 /HPF Urine Squamous Epithelial Cells Few <5 /hpf Urine Bacteria Many H None Seen /hpf Urine Glucose Normal Normal mg/dL Urine Opiates Screen Neg NEGATIVE Urine Fentanyl Screen Neg NEGATIVE Urine Barbiturates Screen Neg NEGATIVE Urine Phencyclidine Screen Neg NEGATIVE Urine Amphetamines Screen Neg NEGATIVE Urine Benzodiazepines Screen Neg NEGATIVE Urine Cocaine Screen Neg NEGATIVE Urine Cannabinoids Screen Neg NEGATIVE Assessment Assessment ASSESSMENT 24 year old at 39w4d GDMA1 IOL- prolonged latent phase GBS negative Category 1 tracing Plan Plan PLAN -Discussed induction options with patient given SVE and contraction pattern. Recommended to AROM at this time, if safe to do so, and reviewed risks/benefits. Patient expresses hesitancy and does not know if she is ready for her water to be broken. Discussed potential labor circuits, such as abdominal lift and tuck and walchers position to assist with descent. Patient would like to try those first before considering AROM. Patient verbalizes understanding with the plan of care and all questions/concerns were answered -Pitocin turned off so patient can ambulate off monitor and do labor circuits -GDMA1: admit blood glucose was WNL. OK to defer accuchecks until symptomatic or active labor begins -Will re-assess cervix in 1-2 hours, or sooner if indicated Plan discussed with: Patient, Spouse, Other (raw stock dyeing machine tender (aunt) and mother) Visit Coding OBGYN Date of Service: Feb 04, 2025 Billing Provider: SU HERNANDEZ CNM CHEESE SUPERVISOR Common Visit Codes: [id number] INP/OBS CARE(HIGH) SU HERNANDEZ CNM Feb 04, 2025 19:44
--- NOTE | 2025-02-04 21:54 | DVHPN2 ---
CNM Labor Progress Note Date and Time Seen Date Seen: Feb 04, 2025 Time Seen: 21:15 Subjective Patient reports: No new complaints Subjective Comment CNM guided patient through [employer] 3 sisters of balance. Notes on positioning in CPN. Patient states she is ready to have AROM. Objective Vital Signs VS stable Monitoring Method Monitoring Method: External Heart Rate Heart Rate Baseline: 120 Heart Rate Variability: Moderate Presence of FHR Accelerations: Yes Presence of FHR Decelerations: No Comment on Trends or Patterns: cat 1 Contractions Contractions Frequency: Occasional Contractions Intensity: Mild Contractions Resting Tone: Relaxed Membranes Membranes: Ruptured Amniotic Fluid Color: Clear Vaginal Exam Vag Exam Deferred: No Vaginal Exam Dilation: 3 Vaginal Exam Effacement: 70 Vaginal Exam Station: -2 Vaginal Exam Presentation: VTX Medications Medications - Pitocin: No Medication - Epidural: No Lab Results Lab Results Current Medications Medications (Trade) Dose Ordered Sig/Nelly Start Time Stop Time Status Last Admin Dose Admin Lactated Ringer's 1,000 ml @ 125 mls/hr Q8H 02/03/25 14:15 02/04/25 11:07 125 MLS/HR Witch Julia (Tucks) 1 pad PRN PRN 02/03/25 14:15 02/03/25 15:44 1 PAD Sodium Lauryl Sulfate (Phisoderm) 240 ml PRN PRN 02/03/25 14:15 02/03/25 15:44 240 ML Benzocaine (Dermoplast) 1 applic PRN PRN 02/03/25 14:15 02/03/25 15:44 1 APPLIC Lidocaine HCl (Xylocaine) 20 ml ONCE PRN 02/03/25 14:15 Oxytocin 500 ml @ 999 mls/hr Q31M ONCE 02/03/25 14:15 02/03/25 15:36 DC Oxytocin 500 ml @ 125 mls/hr Q4H ONCE 02/03/25 14:45 02/03/25 18:44 DC Misoprostol (Cytotec) 50 mcg Q4HPRN PRN 02/03/25 15:15 02/03/25 21:01 50 MCG Dinoprostone (Cervidil Suppository) 1 supp ONCE ONCE 02/03/25 21:00 02/03/25 21:15 DC Dinoprostone (Cervidil Suppository) 1 supp ONCE ONCE 02/03/25 21:30 02/03/25 21:31 DC Oxytocin 1,000 ml @ 6 ml/hr Q24H 02/04/25 07:45 02/04/25 15:11 6 ML/HR Laboratory Tests Test 02/04/25 16:54 02/03/25 14:22 02/03/25 13:52 Range/Units POC Glucose 88 70-106 mg/dl White Blood Count 9.0 4.4-10.8 10^3/uL Red Blood Count 4.35 4.0-5.20 10^6/uL Hemoglobin 12.2 12.2-16.2 g/dL Hematocrit 36.0 36.0-46.0 % Mean Corpuscular Volume 82.8 80.0-100.0 fL Mean Corpuscular Hemoglobin 28.0 28.0-32.0 pg Mean Corpuscular Hemoglobin Concent 33.8 32.0-36.0 g/dL Red Cell Distribution Width 14.7 H 11.8-14.3 % Platelet Count 245 140-450 10^3/uL Mean Platelet Volume 9.3 6.9-10.8 fL Neutrophils (%) (Auto) 67.7 37.0-80.0 % Lymphocytes (%) (Auto) 25.2 10.0-50.0 % Monocytes (%) (Auto) 6.4 0.0-12.0 % Eosinophils (%) (Auto) 0.5 0.0-7.0 % Basophils (%) (Auto) 0.2 0.0-2.0 % Neutrophils # (Auto) 6.1 1.6-8.6 10 ^3/uL Lymphocytes # (Auto) 2.3 0.4-5.4 10 ^3/uL Monocytes # (Auto) 0.6 0-1.3 10 ^3/uL Eosinophils # (Auto) 0 0-0.8 10 ^3/uL Basophils # (Auto) 0 0-0.2 10 ^3/uL Nucleated Red Blood Cells 0.1 % Prothrombin Time 9.4 9.3-11.8 sec Prothrombin Time INR 0.88 L 0.9-1.15 Activated Partial Thromboplast Time 29.3 24.5-34.5 SEC Sodium Level 137 136-145 mmol/L Potassium Level 3.8 3.5-5.1 mmol/L Chloride Level 104 98-107 mmol/L Carbon Dioxide Level 22 20-31 mmol/L Anion Gap 11 5-15 Blood Urea Nitrogen 10 9-23 mg/dL Creatinine 0.82 0.550-1.02 mg/dL Glomerular Filtration Rate Calc 102 >90 mL/min BUN/Creatinine Ratio 12.2 10.0-20.0 Serum Glucose 76 74-106 mg/dL Calcium Level 9.3 8.7-10.4 mg/dL Total Bilirubin 0.4 0.2-1.0 mg/dL Aspartate Amino Transferase (AST) 21 13-40 U/L Alanine Aminotransferase (ALT) 10 7-40 U/L Alkaline Phosphatase 208 H 46-116 U/L Total Protein 7.2 5.7-8.2 g/dL Albumin 4.1 3.2-4.8 g/dL Treponema pallidum Antibody Non-reactive Negative Hepatitis C Antibody Negative Negative Urine Color Colorless Yellow Urine Clarity Turbid H Clear Urine pH 6.5 5.0-9.0 Urine Specific [place] 1.010 1.001-1.035 Urine Protein Negative Negative Urine Ketones 1+ H Negative Urine Blood Negative Negative /uL Urine Nitrite Negative Negative Urine Bilirubin Negative Negative Urine Urobilinogen Normal Negative mg/dL Urine Leukocyte Esterase 2+ Negative /uL Urine RBC 1 0 - 4 /hpf Urine Microscopic WBC 11 H 0-5 /HPF Urine Squamous Epithelial Cells Few <5 /hpf Urine Bacteria Many H None Seen /hpf Urine Glucose Normal Normal mg/dL Urine Opiates Screen Neg NEGATIVE Urine Fentanyl Screen Neg NEGATIVE Urine Barbiturates Screen Neg NEGATIVE Urine Phencyclidine Screen Neg NEGATIVE Urine Amphetamines Screen Neg NEGATIVE Urine Benzodiazepines Screen Neg NEGATIVE Urine Cocaine Screen Neg NEGATIVE Urine Cannabinoids Screen Neg NEGATIVE Assessment Assessment 24 year old at 39w4d IOL- prolonged latent phase GDMA1 GBS negative AROM, clear fluid Plan Plan -AROM discussed with patient and performed at 2113 with patient consent and primary RN at bedside. Clear fluid. Towel and underpad changed -Frequently reposition patient as needed for maternal comfort and tracing -Admit accucheck WNL. Resume checking blood sugar if patient symptomatic or acti ve labor begins -Vital signs per protocol -Assess UC pattern in 2-3 hours. If no significant difference, resume pitocin at 2mu and titrate per policy Plan discussed with: Patient, Spouse, Other (marinator (aunt) and mother) Visit Coding OBGYN Date of Service: Feb 04, 2025 Billing Provider: SU HERNANDEZ CNM CHIMNEY BUILDER HELPER Common Visit Codes: [id number] INP/OBS CARE(HIGH) SU HERNANDEZ CNM Feb 04, 2025 21:54
[2025-02-05] MEDS: ROPIVACAINE HCL 100 ML ONE (00:21)
[2025-02-05] MEDS: ONDANSETRON HCL 4 MG/2 ML VIAL IV PRN (01:24)
[2025-02-05] MEDS ORDERED: ONDANSETRON HCL 4 MG/2 ML VIAL IV PRN (07:30)
[2025-02-05] MEDS: ceFAZolin 1GM/50ML 50 ML IV ONE (07:35)
--- NOTE | 2025-02-05 08:08 | LDN2 ---
Labor and Delivery Note Date 02/05/25 Age 24 1 Para 0->1 EDC 02/07/25 EGA 39w5d Diagnosis IOL-GDMA1 , IUP at 39w5d Retained placenta Second degree perineal laceration and bilateral labial lacerations Vaginal Delivery: VTX Vacuum Assisted: No Placenta: Manual Sex: Male Weight Weight pending. [place] hour in progress Apgars 9/9 Nuchal Cord Transected: No Amniotic Fluid: Clear Anesthesia epidural Episiotomy: No Extension: Yes (second degree perineal and bilateral labial) Repaired with 3-[address]-1 EBL 853 QBL (500 in drape and 353 from weight of laps/raytecs) Labs Blood Bank 02/03/25 14:22: Blood Type A POSITIVE Complications Retained placenta with manual extraction Comments/Significant Med Wes At 0629 this 24yo now delivered a viable male by w/ APGARS 9/9. JOIE. immediately placed skin to skin on pts chest. Cord clamped and cut after pulsation ceased. Unable to collect cord blood. Intact 3-vessel cord. Retained placenta after 35 minutes. Manually extracted. [place] ccenturiate placenta noted. Manual sweep done to ensure all placental fragments removed. Pitocin IV bolus started. Patient taking placenta home. Patient had epidural and pain was well managed Cervix inspected and intact. Second degree perineal laceration present which was repaired with 3-0 vicryl suture in the usual fashion. Bilateral labial lacerations noted. Repaired with 3-0 vicryl. Rectal mucosa and sphincter intact. Dr Sandoval inspected repair upon completion Fundus at U, firm, midline, and light lochia. QBL 835ml. VSS. Count correct x2. Patient to care and baby to couplet care, both stable. Visit Coding OBGYN Date of Service: Feb 05, 2025 Billing Provider: SU HERNANDEZ CNM SUPERVISOR Common Visit Codes: [id number] INP/OBS CARE(HIGH) SUPERVISOR Procedure Codes: [id number] DELIVERY ONLY SU HERNANDEZ CNM Feb 05, 2025 08:07
[2025-02-05] MEDS: IBUPROFEN 600 MG TAB PO PRN (09:53)
[2025-02-05 10:46] VITALS: BP 120/73; PULSE 90; RESP 17; TEMP 98.4; O2SAT 97
[2025-02-05] MEDS: ACETAMINOPHEN 325 MG TAB PO PRN (14:01)
[2025-02-05 14:53] VITALS: BP 126/70; PULSE 82; RESP 16; TEMP 98; O2SAT 97
[2025-02-05 19:00] VITALS: BP 140/87; PULSE 78; RESP 18; TEMP 98; O2SAT 97
[2025-02-05] MEDS: DOCUSATE SOD 100 MG CAP PO SCH (21:59)
[2025-02-05 23:00] VITALS: BP 122/79; PULSE 75; RESP 16; TEMP 98.2; O2SAT 99
--- NOTE | 2025-02-06 02:01 | DVHPN2 ---
Progress Note Date Seen: Feb 06, 2025 Subjective S: Lochia minimal Tolerating regular diet well. Ambulating and voiding well w/o feeling lightheaded or dizzy. Has had BM x1 Breast feeding. Contraceptive plan: undecided Desires and requests to be discharged home today vital signs Vital Sign Date Time Temp Pulse Resp B/P (MAP) Pulse Ox O2 Delivery O2 Flow Rate FiO2 02/05/25 23:00 98.2 75 16 122/79 (93) 99 98.2 02/05/25 19:00 Room Air Total Intake and Output 02/05/25 02/05/25 02/06/25 15:00 23:00 07:00 Output Total 1650 ml 800 ml Balance -1650 ml -800 ml medications Current Medications Medications Dose Ordered Sig/Nelly Route Start Time Stop Time Status Last Admin Dose Admin Melinda Dumont 1 pad PRN PRN TOP 02/03/25 14:15 02/05/25 13:31 1 PAD Sodium Lauryl Sulfate 240 ml PRN PRN TOP 02/03/25 14:15 02/03/25 15:44 240 ML Benzocaine 1 applic PRN PRN TOP 02/03/25 14:15 02/03/25 15:44 1 APPLIC Lidocaine HCl 20 ml ONCE PRN IJ 02/03/25 14:15 Cancel Ibuprofen 600 mg Q6HP PRN PO 02/05/25 07:30 02/05/25 21:59 600 MG Acetaminophen 650 mg Q4HP PRN PO 02/05/25 07:30 02/05/25 19:37 650 MG Ondansetron HCl 4 mg Q4HP PRN IV 02/05/25 07:30 Docusate Sodium 200 mg HS PO 02/05/25 22:00 02/05/25 21:59 200 MG laboratory and microbiology Laboratory Tests 02/03/25 14:22 Test 02/03/25 14:22 Range/Units Serum Glucose 76 74-106 mg/dL Objective O: A&O x3 NAD. Afebrile, VSS Chest: heart and lung sounds normal. Breasts: Nipples intact w/o cracks or soreness Abdomen: normal BS, soft, non-tender, no rebound or guarding, fundus firm @ U- 1, lochia minimal Perineum:- no edema, or erythema, laceration site with sutures intact, edges in good approximation. Extremities: no edema or tenderness Lochia - minimal Assessment/Plan A/P 24 yo now ppd#1 s/p ; doing well. Anemia Blood Type: A Rh: Positive Breast feeding Rubella Immune Pain control with oral medications Bowel regimen: Increase fluid intake and fiber in diet, Laxative PRN PP BCM Plan: undecided Discharge plan: May discharge home later today if condition remains stable Plan discussed with: Patient, Spouse, Other (biodiesel product development manager (aunt) and mother) Visit Coding OBGYN Date of Service: Feb 06, 2025 Billing Provider: JOSÉ MIGUEL MCDONALD CNM GOLF TECHNICIAN Common Visit Codes: [id number] INP/OBS CARE(HIGH) JOSÉ MIGUEL MCDONALD CNM Feb 06, 2025 02:01
--- NOTE | 2025-02-06 02:13 | DVHDS2 ---
Discharge Summary Date of Admission Feb 03, 2025 at 13:52 Date of Discharge: Feb 06, 2025 Admitting Diagnosis <> IUP at 39w 4d <> GDM <> IOL for GDM Labs/Diagnostic Data: Laboratory Results Test 02/05/25 01:13 02/03/25 14:22 02/03/25 13:52 POC Glucose 89 mg/dl (70-106) White Blood Count 9.0 10^3/uL (4.4-10.8) Red Blood Count 4.35 10^6/uL (4.0-5.20) Hemoglobin 12.2 g/dL (12.2-16.2) Hematocrit 36.0 % (36.0-46.0) Mean Corpuscular Volume 82.8 fL (80.0-100.0) Mean Corpuscular Hemoglobin 28.0 pg (28.0-32.0) Mean Corpuscular Hemoglobin Concent 33.8 g/dL (32.0-36.0) Red Cell Distribution Width 14.7 % (11.8-14.3) Platelet Count 245 10^3/uL (140-450) Mean Platelet Volume 9.3 fL (6.9-10.8) Neutrophils (%) (Auto) 67.7 % (37.0-80.0) Lymphocytes (%) (Auto) 25.2 % (10.0-50.0) Monocytes (%) (Auto) 6.4 % (0.0-12.0) Eosinophils (%) (Auto) 0.5 % (0.0-7.0) Basophils (%) (Auto) 0.2 % (0.0-2.0) Neutrophils # (Auto) 6.1 10 ^3/uL (1.6-8.6) Lymphocytes # (Auto) 2.3 10 ^3/uL (0.4-5.4) Monocytes # (Auto) 0.6 10 ^3/uL (0-1.3) Eosinophils # (Auto) 0 10 ^3/uL (0-0.8) Basophils # (Auto) 0 10 ^3/uL (0-0.2) Nucleated Red Blood Cells 0.1 % Prothrombin Time 9.4 sec (9.3-11.8) Prothrombin Time INR 0.88 (0.9-1.15) Activated Partial Thromboplast Time 29.3 SEC (24.5-34.5) Sodium Level 137 mmol/L (136-145) Potassium Level 3.8 mmol/L (3.5-5.1) Chloride Level 104 mmol/L (98-107) Carbon Dioxide Level 22 mmol/L (20-31) Anion Gap 11 (5-15) Blood Urea Nitrogen 10 mg/dL (9-23) Creatinine 0.82 mg/dL (0.550-1.02) Glomerular Filtration Rate Calc 102 mL/min (>90) BUN/Creatinine Ratio 12.2 (10.0-20.0) Serum Glucose 76 mg/dL (74-106) Calcium Level 9.3 mg/dL (8.7-10.4) Total Bilirubin 0.4 mg/dL (0.2-1.0) Aspartate Amino Transferase (AST) 21 U/L (13-40) Alanine Aminotransferase (ALT) 10 U/L (7-40) Alkaline Phosphatase 208 U/L (46-116) Total Protein 7.2 g/dL (5.7-8.2) Albumin 4.1 g/dL (3.2-4.8) Treponema pallidum Antibody Non-reactive (Negative) Hepatitis C Antibody Negative (Negative) Urine Color Colorless (Yellow) Urine Clarity Turbid (Clear) Urine pH 6.5 (5.0-9.0) Urine Specific [place] 1.010 (1.001-1.035) Urine Protein Negative (Negative) Urine Ketones 1+ (Negative) Urine Blood Negative /uL (Negative) Urine Nitrite Negative (Negative) Urine Bilirubin Negative (Negative) Urine Urobilinogen Normal mg/dL (Negative) Urine Leukocyte Esterase 2+ /uL (Negative) Urine RBC 1 /hpf (0 - 4) Urine Microscopic WBC 11 /HPF (0-5) Urine Squamous Epithelial Cells Few /hpf (<5) Urine Bacteria Many /hpf (None Seen) Urine Glucose Normal mg/dL (Normal) Urine Opiates Screen Neg (NEGATIVE) Urine Fentanyl Screen Neg (NEGATIVE) Urine Barbiturates Screen Neg (NEGATIVE) Urine Phencyclidine Screen Neg (NEGATIVE) Urine Amphetamines Screen Neg (NEGATIVE) Urine Benzodiazepines Screen Neg (NEGATIVE) Urine Cocaine Screen Neg (NEGATIVE) Urine Cannabinoids Screen Neg (NEGATIVE) Other Laboratory Tests 02/03/25 14:22 Brief Hx & Hospital Course: Admitted on 02/03/25 at 39w 3d EGA IOL d/t GDMA1. Induction process started with cervical ripening medication and patient then had an uneventful labor. She progressed to 2nd stage of labor and had a over second degree perineal laceration. ( See Delivery Note for details) Normal course; meeting milestones w/o any problem or complications. Operations or Procedures IOL Condition at Discharge: Stable Final Diagnosis/Problems List Term ; Delivered Anemia Discharge Disposition: Home Discharge Instruct/Medications Diet: Regular Diet comment: Routine regular diet rich in fiber, protein, iron and vitamin C with adequate fluid intake. Activity: No Restrictions, As Tolerated Activity comment: Unrestricted. Advance as tolerated. Balance activities with rest periods No heavy lifting, pushing or straining. Pelvic rest x 6weeks Follow Up/Referral: Follow up with OB Provider in 1-2 weeks Medications: Ibuprofen 600mg every 6 hours as needed for pain. Continue Vitamin and iron Follow up with OB Provider in 1 wee Scheduled Ferrous Sulfate (Iron (Ferrous Sulfate)), 50 MG PO DAILY, (Reported) Nifedipine (Procardia Capsule), 10 MG PO Q4HR Vit W/ Ferrous Fumara (Pnv Plus Multivi), 1 TAB PO DAILY, (Reported) Discharge Statement: self care instructions given. emergency signs and symptoms including but not limited to pre-eclampsia precautions and signs of infection, PPH & of PPD reviewed with patient. Follow up with OB Provider in 1 week "Patient was advised to return to the ER or call 911 if any headaches, dizziness, shortness of breath, chest pain, abdominal pain, bleeding, fevers, or worsening of medical condition. Patient was counseled about treatment plan, medications, possible side effects, patientverbalized understanding. All questions were answered to the best of my ability. This discharge took greater then 30 minutes in planning, reviewing documentation, counseling the patient, and discussing with other team members." ASSESSMENT ASSESSMENT Hospital Course Admitted on 02/03/25 at 39w 3d EGA IOL d/t GDMA1. Induction process started with cervical ripening medication and patient then had an uneventful labor, got labor epidural for pain relief. She progressed to 2nd stage of labor and had a over second degree perineal laceration. ( See Delivery Note for details) Normal course; meeting milestones w/o any problem or complications. Assessment Term ; Delivered Visit Coding OBGYN Date of Service: Feb 06, 2025 Billing Provider: JOSÉ MIGUEL MCDONALD CNM [employer] Common Visit Codes: 07350-FSF/OBS DISCH DAY <30MIN, 52912-DVD/OBS DISCH DAY >30MIN JOSÉ MIGUEL MCDONALD CNM Feb 06, 2025 02:13
[2025-02-06 03:00] VITALS: BP 123/74; PULSE 72; RESP 18; TEMP 98.3; O2SAT 99
[2025-02-06 07:00] VITALS: BP 121/77; PULSE 121; PULSE 94; RESP 18; TEMP 98.1; O2SAT 97
[2025-02-06 07:19] LABS: Hematocrit 23.7 % (36.0-46.0); Hemoglobin 8.1 g/dL (12.2-16.2); Mean Corpuscular Hemoglobin 28.4 pg (28.0-32.0); Mean Corpuscular Volume 82.9 fL (80.0-100.0); Nucleated Red Blood Cells % 0.1 %
[2025-02-06 11:00] VITALS: BP 130/87; PULSE 9; RESP 18; TEMP 97.9; O2SAT 97
== END 2025-02-06 14:23 | disposition home or self-care (01) | DRG 807 ==
LOC: OBSVTOIN 13:52 → LDRP 13:52
PROVIDERS: ADMIT Obstetrics & Gynecology; ATTEND Obstetrics & Gynecology
PROC: 10E0XZZ Delivery of Products of Conception, External Approach (ICD-10-PCS; principal; 2025-02-03)
PROC: 0KQM0ZZ Repair Perineum Muscle, Open Approach (ICD-10-PCS; 2025-02-03)
PROC: 3E033VJ Introduction of Other Hormone into Peripheral Vein, Percutaneous Approach (ICD-10-PCS; 2025-02-03)
DX: O24.420 Gestational diabetes mellitus in childbirth, diet controlled (principal); Z37.0 Single live birth; O63.0 Prolonged first stage (of labor); Z3A.39 39 weeks gestation of pregnancy; O70.1 Second degree perineal laceration during delivery; O90.81 Anemia of the puerperium; D64.9 Anemia, unspecified
CPT/HCPCS: 36415; 59409; 80053; 80307; 81001; 82948; 82962; 85025; 85610; 85730; 86780; 86803; 86850; 86900; 86901; 94760; 94762; 96360; 96361; 96365; 96366; G0378; J2405; J2590